=== PATIENT | male | born 1990 | race Caucasian/White ===

== ENCOUNTER 2020-01-11 10:33 | Day surgery (SDC) | payer MEDICAID ==
[~2020-01-11 10:33] MED LIST: INSU100I8 SQ; LANTUS SQ
[2020-01-11] MEDS ORDERED: LIDOcaine 2% 5ml jelly ONE (11:24)
== END 2020-01-11 12:47 | disposition home or self-care (01) ==
LOC: WOUND CARE 10:33
PROVIDERS: ATTEND Nurse Practitioner Family
DX: S81.802A Unspecified open wound, left lower leg, initial encounter (principal); E11.622 Type 2 diabetes mellitus with other skin ulcer; L97.222 Non-pressure chronic ulcer of left calf with fat layer exposed; E11.65 Type 2 diabetes mellitus with hyperglycemia; E78.5 Hyperlipidemia, unspecified; E11.42 Type 2 diabetes mellitus with diabetic polyneuropathy; E66.01 Morbid (severe) obesity due to excess calories; F32.9 Major depressive disorder, single episode, unspecified; F41.9 Anxiety disorder, unspecified; F15.90 Other stimulant use, unspecified, uncomplicated; Z79.4 Long term (current) use of insulin; Z68.41 Body mass index [BMI] 40.0-44.9, adult; Z87.891 Personal history of nicotine dependence; X58.XXXA Exposure to other specified factors, initial encounter; Y93.89 Activity, other specified; Y92.89 Other specified places as the place of occurrence of the external cause; Y99.8 Other external cause status
CPT/HCPCS: 36416; 82948; 97597; G0463

== ENCOUNTER 2020-01-18 11:44 | Outpatient (CLI) | payer MEDICAID | END 2020-01-18 12:51 | disposition home or self-care (01) | LOC: WOUND CARE 11:44 | PROVIDERS: ATTEND Nurse Practitioner Family | DX: S81.802A Unspecified open wound, left lower leg, initial encounter (principal); E11.622 Type 2 diabetes mellitus with other skin ulcer; L97.222 Non-pressure chronic ulcer of left calf with fat layer exposed; E11.65 Type 2 diabetes mellitus with hyperglycemia; E78.5 Hyperlipidemia, unspecified; I10 Essential (primary) hypertension; E11.42 Type 2 diabetes mellitus with diabetic polyneuropathy; E66.01 Morbid (severe) obesity due to excess calories; F32.9 Major depressive disorder, single episode, unspecified; F41.9 Anxiety disorder, unspecified; F15.90 Other stimulant use, unspecified, uncomplicated; Z79.4 Long term (current) use of insulin; Z68.41 Body mass index [BMI] 40.0-44.9, adult; Z87.891 Personal history of nicotine dependence; X58.XXXA Exposure to other specified factors, initial encounter; Y93.89 Activity, other specified; Y92.89 Other specified places as the place of occurrence of the external cause; Y99.8 Other external cause status | CPT/HCPCS: 36416; G0463 ==

== ENCOUNTER 2020-01-25 11:45 | Outpatient (CLI) | payer MEDICAID | END 2020-01-25 13:00 | disposition home or self-care (01) | LOC: WOUND CARE 11:45 | PROVIDERS: ATTEND Nurse Practitioner Family | DX: E11.622 Type 2 diabetes mellitus with other skin ulcer (principal); L97.222 Non-pressure chronic ulcer of left calf with fat layer exposed; E11.65 Type 2 diabetes mellitus with hyperglycemia; E78.5 Hyperlipidemia, unspecified; I10 Essential (primary) hypertension; E11.42 Type 2 diabetes mellitus with diabetic polyneuropathy; E66.01 Morbid (severe) obesity due to excess calories; F32.9 Major depressive disorder, single episode, unspecified; F41.9 Anxiety disorder, unspecified; F15.90 Other stimulant use, unspecified, uncomplicated; Z79.4 Long term (current) use of insulin; Z68.41 Body mass index [BMI] 40.0-44.9, adult; Z87.891 Personal history of nicotine dependence | CPT/HCPCS: G0463 ==

== ENCOUNTER 2022-06-20 06:48 | Emergency (ER) | payer MEDICAID ==
[~2022-06-20] VITALS: Ht 180.3 cm; Wt 115.0 kg
[2022-06-20] MEDS ORDERED: normal saline 1000ML IV soln IVB ONE ×3 (07:05→08:00)
[2022-06-20] MEDS ORDERED: dextrose 50%-water 50ml dispensing syringe IV PRN (07:10)
[2022-06-20] MEDS ORDERED: Insulin Reg/NS 100units/100mL 100 ML IV SCH (07:10)
--- NOTE | 2022-06-20 07:21 | NUR ---
SPOKE TO DR NICOLE ABOUT PATIENTS ABG ORDER, DR NICOLE INFORMED RT THAT ABG WAS NO LONGER NEEDED. RN MADE AWARE AND INTERVENTION INIDICATOR WAS RESET.
[2022-06-20 07:26] LABS: BASOPHILS # (AUTO) 0.1 X10'3 (0-0.2); BASOPHILS % (AUTO) 0.9 % (0-1); EOSINOPHILS % (AUTO) 0 % (0-6); HEMATOCRIT 34.9 % (42.0-52.0); HEMOGLOBIN 11.5 g/dl (14.0-17.9); LYMPHOCYTES # (AUTO) 0.6 X10'3 (1.1-4.8); LYMPHOCYTES % (AUTO) 8.2 % (21-51); MEAN CORPUSCULAR HEMOGLOBIN 29.2 PG (27.0-31.0); MEAN CORPUSCULAR VOLUME 88.4 FL (78-98); MONOCYTES # (AUTO) 0.1 X10'3 (0-0.9); MONOCYTES % (AUTO) 1.3 % (2-12); NEUTROPHILS # (AUTO) 6.2 X10'3 (1.8-7.7); NEUTROPHILS % (AUTO) 89.6 % (42-75); PLATELET COUNT 347 X10'3 (140-440); RED BLOOD COUNT 3.94 X10'6 (4.70-6.10); RED CELL DISTRIBUTION WIDTH 13.4 % (11.5-14.5)
[2022-06-20 07:31] LABS: ALANINE AMINOTRANSFERASE 24 U/L (12-78); ALBUMIN 3.7 G/DL (3.4-5.0); ALBUMIN/GLOBULIN RATIO 0.9 (1.1-1.5); ALKALINE PHOSPHATASE 106 IU/L (46-116); ANION GAP 22 (8-16); ASPARTATE AMINO TRANSFERASE 12 U/L (10-37); BILIRUBIN,TOTAL 0.9 MG/DL (0.1-1.0); BLOOD UREA NITROGEN 57 MG/DL (7-18); CALCIUM 8.5 MG/DL (8.5-10.1); CHLORIDE 100 MMOL/L (99-107); CREATININE 14.42 MG/DL (0.60-1.10); GLUCOSE 385 MG/DL (70-104); LIPASE < 50 U/L (73-393); POTASSIUM 5.2 MMOL/L (3.5-5.1); SODIUM 142 MMOL/L (135-145); TOTAL CARBON DIOXIDE 20.5 MMOL/L (24-32); TOTAL PROTEIN 7.7 G/DL (6.4-8.2); eGFR 4 ML/MIN
[2022-06-20] MEDS ORDERED: ondansetron/PF 4mg/2ml inj IV ONE (07:45)
[2022-06-20] MEDS ORDERED: morphine 4 MG/ML inj SYRINge IV ONE (07:45)
--- NOTE | 2022-06-20 08:00 | NUR ---
Patient states he is unable to urinate at this time. Refused straight cath.
[2022-06-20] MEDS ORDERED: clindamycin 600mg/D5W 50ml 50 ML IV ONE (08:10)
[2022-06-20] MEDS ORDERED: insulin Lispro (HumaLOG) vial - multi-dose SQ ONE (08:22)
--- NOTE | 2022-06-20 10:00 | NUR ---
Dr Cage aware patient unable to void at this time for UA.
[2022-06-20 10:35] LABS: ALBUMIN 3.5 G/DL (3.4-5.0); BLOOD UREA NITROGEN 59 MG/DL (7-18); BUN/CREATININE RATIO 4.1 (5.4-32.0); CALCIUM 8.2 MG/DL (8.5-10.1); CREATININE 14.25 MG/DL (0.60-1.10); GLUCOSE 353 MG/DL (70-104); TOTAL CARBON DIOXIDE 19.3 MMOL/L (24-32); eGFR 4 ML/MIN
[2022-06-20 10:42] LABS: ANION GAP 21 (8-16); CHLORIDE 103 MMOL/L (99-107); POTASSIUM 5.2 MMOL/L (3.5-5.1); SODIUM 143 MMOL/L (135-145)
[2022-06-20 11:50] VITALS: BP 180/100
[2022-06-20] MEDS ORDERED: ondansetron 4mg rapidly disintigrating tab PO ONE (11:55)
[2022-06-20] MEDS ORDERED: AMOX-117 PO (11:58)
[2022-06-20] MEDS ORDERED: HYDR-3965 PO (11:58)
[2022-06-20] MEDS ORDERED: ONDA4TAB12 PO (12:06)
== END 2022-06-20 11:51 | disposition home or self-care (01) ==
LOC: ER 06:48
DX: E11.65 Type 2 diabetes mellitus with hyperglycemia (principal); E86.0 Dehydration; E11.22 Type 2 diabetes mellitus with diabetic chronic kidney disease; N18.9 Chronic kidney disease, unspecified; Z79.4 Long term (current) use of insulin; Z79.899 Other long term (current) drug therapy
CPT/HCPCS: 36415; 80048; 80053; 82948; 83605; 83690; 85025; 87040; 96365; 96366; 96368; 96372; 96375; 99284; J1815; J2270; J2405; J3490; J7030; 96374